=== PATIENT | female | born 1985 ===

== ENCOUNTER 2019-01-22 07:13 | Day surgery (SDC) | payer BC ==
--- NOTE | 2019-01-21 16:09 | Pre-Procedure Note/Attestation ---
Pre-Procedure Note/Attestation Complete Prior to Procedure Planned Procedure: left Procedure Narrative: left knee scope, lateral meniscectomy and chondroplasty Indications for Procedure Pre-Operative Diagnosis: left knee lateral meniscus tear Attestation I attest that I discussed the nature of the procedure; its benefits; risks and complications; and alternatives (and the risks and benefits of such alternatives ), prior to the procedure, with the patient (or the patient's legal shipping services sales representative). I attest that, if there was a reasonable possibility of needing a blood transfusion, the patient (or the patient's legal shipping services sales representative) was given the [facility] standardized written summary, pursuant to the Jovanni Jermaine Blood Safety Act ([place] Health and Safety Code # 1645, as amended). I attest that I re-evaluated the patient just prior to the surgery and that there has been no change in the patient's H&P, except as documented below: NONE Roland Cain MD Jan 21, 2019 16:09
[~2019-01-22] VITALS: Ht 179.1 cm; Wt 68.0 kg
[2019-01-22] VITALS (10 sets, daily range): BP systolic 106–124; BP diastolic 61–78
[~2019-01-22 07:13] MED LIST: ceFAZolin 1gm IVPB IVPB ONE; celeBREX 200mg Cap **SURGERY PATIENTS ONLY ORAL ONE; oxyCONTIN 20mg tab ORAL ONE
[2019-01-22] MEDS ORDERED: NKM (07:48)
[2019-01-22] MEDS ORDERED: celeBREX 200mg Cap **SURGERY PATIENTS ONLY ORAL ONE (08:15)
[2019-01-22] MEDS ORDERED: oxyCONTIN 20mg tab ORAL ONE (08:15)
[2019-01-22] MEDS ORDERED: LR 1000ml 1,000 ML IVLG SCH (08:25)
--- NOTE | 2019-01-22 08:26 | Anethesia Preoperative Eval ---
Anesthesia Pre-op PMH/ROS General Date of Evaluation: Jan 22, 2019 Time of Evaluation: 08:59 Anesthesiologist: Cortes ASA Score: ASA 1 Mallampati Score Class I : Soft palate, uvula, fauces, pillars visible Class II: Soft palate, uvula, fauces visible Class III: Soft palate, base of uvula visible Class IV: Only hard plate visible Mallampati Classification: Class I Surgeon: Payton Diagnosis: R Knee Pain Surgical Procedure: R Knee Arthroscopy Anesthesia History: none Family History: no anesthesia problems Allergies: Coded Allergies: BRAZIL NUT (Verified Allergy, Severe, "throat closes up", 01/22/19) Medications: see eMAR Patient NPO?: Yes Past Medical History PSxH Narrative: Multiple Knee Sx, Breast cysts SX, Lasix, RIHR Anesthesia Pre-op Phys. Exam Physician Exam Last Vital Signs Date Time Temp Pulse Resp B/P (MAP) Pulse Ox O2 Delivery O2 Flow Rate FiO2 01/22/19 08:05 97.0 67 18 108/61 100 Room Air Constitutional: NAD Neurologic: CN 2-12 intact Cardiovascular: RRR Respiratory: CTA Gastrointestinal: S/NT/ND Airway Exam Mallampati Score: Class I MO: full ROM: full Teeth: intact Anesthesia Pre-op A/P Labs Urine Test Test 01/22/19 07:30 Urine HCG, Qualitative Negative (NEGATIVE) Risk Assessment & Plan Assessment: ASA 1 Plan: GA, SED Status Change Before Surgery: No Pre-Antibiotics Dru Gram Ancef IV Given Within 1 Hr of Incision: Yes Time Given: 09:16 Terrell Kolb MD Jan 22, 2019 08:26
[2019-01-22] MEDS ORDERED: HYDROcodone/Acetamin 5/325 tab ORAL PRN ×2 (08:30→09:15)
[2019-01-22] MEDS ORDERED: fentaNYL 100 mcg/2 mL IV PRN (08:30)
[2019-01-22] MEDS ORDERED: Midazolam 2mg/2ml Inj IVP PRN (08:30)
[2019-01-22] MEDS ORDERED: LORazepam Inj 2mg/ml 1ml IV PRN (08:30)
[2019-01-22] MEDS ORDERED: oxyCODONE HCL/Acetaminophen 5/325mg ORAL PRN (08:30)
[2019-01-22] MEDS ORDERED: Atropine Sulfate 0.4mg/ml inj IVP PRN (08:30)
[2019-01-22] MEDS ORDERED: Labetalol 5mg/ml 20ml vial IV PRN (08:30)
[2019-01-22] MEDS ORDERED: Metoclopramide 10mg/2ml Inj IVP PRN (08:30)
[2019-01-22] MEDS ORDERED: HYDROcodone/Acetamin 7.5/325 tab ORAL PRN (08:30)
[2019-01-22] MEDS ORDERED: Hydromorphone 0.5mg/0.5ml inj IVP PRN (08:30)
[2019-01-22] MEDS ORDERED: Meperidine 50mg/ml Inj(FOR RIGORS ONLY) IVP PRN (08:30)
[2019-01-22] MEDS ORDERED: DiphenhydrAMINE 50mg/ml Inj IVP PRN (08:30)
[2019-01-22] MEDS ORDERED: Ketorolac 30mg Inj IV PRN ×2 (08:30)
[2019-01-22] MEDS ORDERED: Ropivacaine 5mg/ml Vial 30ml INJ ONE (08:45)
[2019-01-22] MEDS ORDERED: Acetaminophen (Non formulary) 100 ML IV ONE (09:00)
[2019-01-22] MEDS ORDERED: NS Irrig 4000ml IRRIG ONE (09:00)
[2019-01-22] MEDS ORDERED: LR 1000ml ONE (09:00)
[2019-01-22] MEDS ORDERED: fentaNYL 100 mcg/2 mL IV ONE (09:01)
[2019-01-22] MEDS ORDERED: Propofol 200mg/20ml IV ONE (09:04)
[2019-01-22] MEDS ORDERED: Dexamethasone 4mg/ml vial ONE (09:04)
[2019-01-22] MEDS ORDERED: Lidocaine 1% MPF 10mg/ml 5ml ONE (09:04)
[2019-01-22] MEDS ORDERED: Tylenol #3 tab (300mg/30mg) ORAL PRN (09:15)
[2019-01-22] MEDS ORDERED: D5 1/2NS 1,000 ML IV SCH (09:15)
[2019-01-22] MEDS ORDERED: HYDROmorphone 1mg/ml Carpuject SUBQ PRN (09:15)
--- NOTE | 2019-01-22 10:06 | Immediate Post-Op Evaluation ---
Immediate Post-Op Evalulation Immediate Post-Op Evalulation Procedure: R Knee Arthroscopy Date of Evaluation: Jan 22, 2019 Time of Evaluation: 10:34 IV Fluids: 800 LR Blood Products: 0 Estimated Blood Loss: 10 Urinary Output: 0 Blood Pressure Systolic: 119 Blood Pressure Diastolic: 75 Pulse Rate: 76 Respiratory Rate: 16 O2 Sat by Pulse Oximetry: 100 Temperature (Fahrenheit): 98.8 Pain Score (1-10): 2 Nausea: No Vomiting: No Complications 0 Patient Status: awake, reacts, patent, none Hydration Status: adequate Dru Gram Ancef IV Given Within 1 Hr of Incision: Yes Time Given: 09:16 Terrell Kolb MD Jan 22, 2019 10:06
--- NOTE | 2019-01-22 10:06 | 48 Hour Post Anesthesia Eval ---
Post Anesthesia Evaluation Procedure: R Knee Arthroscopy Date of Evaluation: Jan 22, 2019 Time of Evaluation: 12:43 Blood Pressure Systolic: 121 0: 72 Pulse Rate: 74 Respiratory Rate: 18 Temperature (Fahrenheit): 98.6 O2 Sat by Pulse Oximetry: 100 Airway: patent Nausea: No Vomiting: No Pain Intensity: 2 Hydration Status: adequate Cardiopulmonary Status: Stable Mental Status/LOC: patient returned to baseline Follow-up Care/Observations: 0 Post-Anesthesia Complications: 0 Follow-up care needed: ready to discharge Terrell Kolb MD Jan 22, 2019 10:06
--- NOTE | 2019-01-22 10:08 | Brief Operative Note ---
Immediate Post Operative Note Operative Note Chief Complaint: left knee pain Pre-op Diagnosis: left knee lateral meniscus tear Procedure: left knee scope, lateral meniscectomy and chondroplasty Post-op Diagnosis: same as pre-op Findings: consistent w/pre-op dx studies Surgeon: md suzanne Entry Operator: yady treadwell Anesthesiologist: md josafat Anesthesia: general Specimen: none Complications: none Condition: stable Fluids: ns Estimated Blood Loss: minimal Drains: none Implant(s) used?: No Brianna Treadwell Jan 22, 2019 10:08
--- NOTE | 2019-01-22 12:30 | Operative Note - Dictated ---
DATE OF OPERATION: 01/22/2019 PREOPERATIVE DIAGNOSIS: Left knee status post lateral meniscal transplantation with lateral meniscal tearing. POSTOPERATIVE DIAGNOSES: 1. Left knee status post lateral meniscus transplantation. 2. Left knee significant tear of the body and anterior horn of lateral meniscus with complete degeneration and lack of meniscal tissue with truncation of the meniscus at the level of the midbody with some fraying of the posterior horn lateral meniscus. 3. 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 4. Intact anterior cruciate ligament and posterior cruciate ligament. 5. No evidence of chondral damage of the trochlea, patella, or medial compartment. PROCEDURE: 1. Left knee arthroscopy and extensive intra-articular shaving. 2. Left knee partial lateral meniscectomy involving 40% of anterior horn, body, lateral meniscus and with some debridement of the posterior horn of the lateral meniscus. 3. Left knee lateral compartment chondroplasty. SURGEON: Roland Cain M.D. EXCHANGE ENGINEER: Brianna Fallon PA-C. Potato Chip Frier was present during the actual operative portion of the case and was important and essential part of the operation. During the operation, the fitter's assistant held and operated the arthroscopic camera for visualization, assisted by manipulating the leg to help with visualization, and helped with essential parts of the repair process as necessary such as operating surgical instruments under surgeon supervision, suture management, and wound closures. ANESTHESIOLOGIST: Terrell Kolb M.D. ANESTHESIA: General LMA anesthesia. TOURNIQUET TIME: 25 minutes. ESTIMATED BLOOD LOSS: Minimal. COMPLICATIONS: None. SURGICAL INDICATION: The patient is a 33-year-old female, who sustained the above injury to her knee. The patient was treated non-operative initially, but this did not alleviate the patients symptoms. Therefore, after discussing all non-surgical and surgical options, and discussing all foreseeable risk and benefits of surgery, the patient opted for surgical treatment as described above. PATIENT POSITIONING: The patient was brought to the operating room table and placed supine. All pressure points were well padded. General anesthesia was induced and a well padded tourniquet was placed on the thigh. The lateral post was placed and positioned to allow for opening of the medial compartment of the knee without placing pressure over the fibular head. The patients entire leg was prepped and draped in the usual sterile fashion. Time out was performed and preop abx was given and after exsanguinating the lower extremity, the tourniquet was inflated to 275 mm of mercury. EXAMINATION OF THE KNEE UNDER ANESTHESIA: Before prepping and draping the knee and while the patient was relaxed under general anesthesia, the knee was examined for ROM, and anterior and posterior, medial and lateral, posterolateral, and posteromedial instability. Pivot shift testing was performed. There was no evidence of loss of motion or instability and the pivot shift testing was negative. PORTAL PLACEMENT: The lateral portal was placed with the knee flexed to 90 degrees at the level of inferior border of the patella in line with the lateral border of the patella. A cm skin incision was made with an eleven blade, and using a blunt obturator, the capsule was gently penetrated. Sterile saline solution was then infused inside the knee with the aid of a pump set at 35 mm mercury pressure. Under direct visualization, placement of the medial portal was preliminary judged using a spinal needle, and it was subsequently established using the same technique as the lateral portal. Care was given not to injure the cutaneous branches of the medial Saphenous nerve or the subcutaneous veins. DIAGNOSTIC ARTHROSCOPY: The suprapatellar patellar pouch was visualized. There was no evidence of scar tissue or loose fragments. The medial and lateral patellar facets and trochlear groove articular cartilage was visualized. These structures were intact and were devoid of any articular cartilage damage. The medial plica shelf and the corresponding medial femoral condyle articular cartilage were visualized. There was no significantly thickening of the medial plica shelf and there were no kissing? lesion over the medial femoral condyle. The lateral gutter and the posterolateral corner of the knee were visualized. There were no loose bodies, and the popliteus tendon and other structures of the posterolateral corner of the knee were intact intra-articularly. At this point, the knee was placed in the figure of four position and the lateral compartment was entered. The lateral femoral condyle, lateral tibial plateau, and the anterior, body, and the posterior horn of the lateral meniscus were visualized and probed. The articular surface on the lateral compartment showed evidence of significant with the knee in flexion. There was grade 3 chondromalacia diffusely. However, with knee extended, there does not appear to be significant chondral damage. Potentially, there was evidence of a complex tear of the body of the lateral meniscus involving the body and anterior horn. The meniscus was frayed and degenerated and essentially frayed tissue. Posterior horn was intact. There was truncation of the body and posterior horn of lateral meniscus from the frayed and torn anterior horn. The knee was then placed at 90 degree and the ACL and PCL were visualized and probed. The ACL was completely intact on visualization and probing, and it had excellent tension. The PCL was completely intact on visualization and probing and it had excellent tension. The medial compartment was then entered and the medial femoral condyle, medial tibial plateau, and the anterior, body, and the posterior horn of the medial meniscus were visualized and probed. The articular surfaces were intact and devoid of articular cartilage damage. The medial meniscus was completely intact both on its undersurface and on the top. The medial gutter was visualized. There was no evidence of defect or loose fragments. The scope was then brought back to the patella femoral compartment. OPERATIVE ARTHROSCOPY: At this point, all loose debris and fragments were removed with the use of suction motorized shaver. Specific attention was given to assure all visible loose fragments were irrigated out of the knee joint with pump inflow and cannula outflow system. For lateral meniscectomy: At this point, attention was given to the lateral meniscus. Using combination of baskets and cassy, the torn portion of the lateral meniscus was removed. Attention was given to remove all displaced and unstable portion of the lateral meniscus while maintaining as much of the functional portion of the meniscus as possible. Approximately, % of the body and anterior horn of the lateral meniscus was removed in this fashion. The transition between the meniscectomy portion and intact portion of the meniscus was smoothed out with combination of small baskets and cassy. Excellent transition zone was obtained in this fashion. For lateral compartment chondroplasty: Care was given to the area of cartilage damage in the lateral compartment. The frayed and loose fragments of articular cartilage were debrided using a motorized shaver. Suction was used to pull in the loose fragments and flaps of the cartilage and to minimize damage to the intact and well attached portion of the cartilage. This allowed for smooth surfaces for the articular cartilage. CONDITION AT DISCHARGE FROM OPERATING ROOM: The knee was irrigated with copious amount of normal saline at the end of the procedure. The scope was removed and the water was drained. The skin edges were re-approximated and sterile dressing was applied. All lap count and instrument counts were correct. Patient tolerated the procedure well without complications and was taken to the recovery room in stable conditions. Roland Cain M.D. DR: SCARLET JOB#: [id number] CC:
== END 2019-01-22 12:20 | disposition home or self-care (01) ==
LOC: SUR 07:13
DX: S83.282A Other tear of lateral meniscus, current injury, left knee, initial encounter (principal); X58.XXXA Exposure to other specified factors, initial encounter; Y92.9 Unspecified place or not applicable; Z91.018 Allergy to other foods
CPT/HCPCS: 29881; 81025; J0690; J1100; J1885; J2250; J2405; J2704; J2795; J3010; J7120; 94003; 94150